=== PATIENT | male | born 1945 | race Caucasian/White ===

== ENCOUNTER 2018-07-05 15:41 | Emergency (ER) | payer OTHER ==
[2018-07-05 15:53] VITALS: BP 154/78
--- NOTE | 2018-07-05 16:02 | UC ---
Dental HPI - HPI Summary HPI Summary: C/O left frontal dental pain since yesterday. Tooth is moving, left middle lower incisor. Shooting pain with movement. - History of Current Complaint Chief Complaint: UCDentalProblem Stated Complaint: DENTAL PAIN Hx Obtained From: Patient Onset/Duration: Sudden Onset, Lasting Days - 2, Still Present Severity: Severe Pain Intensity: 9 Aggravating Factor(s): Chewing Alleviating Factor(s): Nothing Related History: Previous Dental Care on Same Tooth - Allergies/Home Medications Allergies/Adverse Reactions: Allergies Allergy/AdvReac Type Severity Reaction Status Date / Time No Known Allergies Allergy Verified 07/05/18 15:54 Home Medications: Home Medications Ibuprofen TAB* [Motrin TAB* 600 MG] 600 mg PO Q8H PRN 07/05/18 [History Confirmed 07/05/18] Simvastatin [Zocor] 40 mg PO BEDTIME 07/05/18 [History Confirmed 07/05/18] PMH/Surg Hx/FS Hx/Imm Hx Cardiovascular History: Hypertension - Surgical History Surgical History: Yes Surgery Procedure, Year, and Place: 1984 OPEN [facility]. 2005 THUMB REC[facility] [place]. 2009 [facility] REPAIR WITH [facility] [employer] [employer] - Family History Known Family History: Positive: Hypertension, Diabetes - Social History Occupation: Employed Part-time Lives: Alone Alcohol Use: None Substance Use Type: None Smoking Status (MU): Former Smoker Review of Systems All Other Systems Reviewed And Are Negative: Yes ENT: Positive: Dental Pain Is Patient Immunocompromised?: No Physical Exam Triage Information Reviewed: Yes Appearance: Well-Appearing, Well-Nourished, Pain Distress Vital Signs: Initial Vital Signs Temp 97.9 F 07/05/18 15:50 Pulse 66 07/05/18 15:50 Resp 17 07/05/18 15:50 BP 154/78 07/05/18 15:50 Pulse Ox 100 07/05/18 15:50 Eye Exam: Normal Eyes: Positive: Conjunctiva Clear ENT: Positive: Pharynx normal, TMs normal Dental: Positive: Percussion Tenderness @ - #24 Neck exam: Normal Respiratory Exam: Normal Cardiovascular Exam: Normal Musculoskeletal Exam: Normal Neurological Exam: Normal Psychological Exam: Normal Skin Exam: Normal Dental Complaint Course/Dx - Differential Dx/Diagnosis Differential Diagnosis/Dx: Dental Abscess, Fractured Tooth, Odontogenic Pain Provider Diagnosis: Pain, dental Discharge - Sign-Out/Discharge Documenting (check all that apply): Patient Departure All imaging exams completed and their final reports reviewed: No Studies - Discharge Plan Condition: Stable Disposition: HOME Prescriptions: Gabapentin CAP(*) [Neurontin 300 CAP(*)] 300 mg PO TID PRN #30 cap PRN Reason: Dental pain Penicillin VK 500 MG TAB(NF) [Penicillin VK 500 mg Tab] 500 mg PO QID #40 tab Patient Education Materials: Toothache (ED), Gabapentin (By mouth) Referrals: Rayshawn Graham MD [Primary Care Provider] - Additional Instructions: GABAPENTIN: Gabapentin is an anti-seizure medication that is more often used for nerve pain. It helps to stabilize the nerve to stop the pain. Its primary side effect is sedation which will improve over time. Most people will start with only one capsule 1 to 2 hours before bed, but if your pain is more severe you may want to start with one capsule twice a day. If the pain is still an issue after another 1-2days the dose may be increased to a maximum of 1 capsule 3 times a day. Decrease the dose by one capsule a day if there is excessive sedation or it is not working. You can also decrease it to discontinue it if the pain is resolving. - Billing Disposition and Condition Condition: STABLE Disposition: Home
== END 2018-07-05 16:16 | disposition home or self-care (01) ==
LOC: UCCORT 15:41
DX: K08.89 Other specified disorders of teeth and supporting structures (principal); I10 Essential (primary) hypertension; Z87.891 Personal history of nicotine dependence
CPT/HCPCS: 99212; G0463